=== PATIENT | female | born 1955 | race Caucasian/White ===

== ENCOUNTER → 2016-11-15 16:42 | Outpatient (CLI) | payer BC | END | disposition home or self-care (01) | LOC: D.MAMMO 10:30 | DX: Z85.3 Personal history of malignant neoplasm of breast (principal) ==

== ENCOUNTER → 2017-11-07 14:41 | Outpatient (CLI) | payer BC | END | disposition home or self-care (01) | LOC: D.RAD 14:41 | DX: R05 Cough (principal) ==

== ENCOUNTER → 2017-12-19 22:05 | Outpatient (CLI) | payer BC | END | disposition home or self-care (01) | LOC: D.MAMMO 11:00 | DX: Z85.3 Personal history of malignant neoplasm of breast (principal) ==

== ENCOUNTER → 2017-12-25 09:24 | Outpatient (CLI) | payer BC | END | disposition home or self-care (01) | LOC: D.US 09:24 | DX: N63.20 Unspecified lump in the left breast, unspecified quadrant (principal); Z85.3 Personal history of malignant neoplasm of breast; Z90.11 Acquired absence of right breast and nipple ==

== ENCOUNTER → 2018-06-09 08:26 | Outpatient (CLI) | payer BC | END | disposition home or self-care (01) | LOC: D.US 08:26 | DX: N63.23 Unspecified lump in the left breast, lower outer quadrant (principal) ==

== ENCOUNTER 2018-12-25 19:00 | Outpatient (CLI) | payer BC | END 2018-12-25 23:59 | disposition home or self-care (01) | LOC: D.MAMMO 19:00 | PROVIDERS: ATTEND Internal Medicine Gastroenterology | DX: Z85.3 Personal history of malignant neoplasm of breast (principal) ==

== ENCOUNTER → 2019-12-31 10:07 | Outpatient (CLI) | payer BC | END | disposition home or self-care (01) | LOC: D.MAMMO 09:00 | PROVIDERS: ATTEND Obstetrics & Gynecology | DX: Z12.31 Encounter for screening mammogram for malignant neoplasm of breast (principal); Z85.3 Personal history of malignant neoplasm of breast ==